=== PATIENT | male | born 1995 | race Caucasian/White ===

== ENCOUNTER 2019-08-06 14:47 | Emergency (ER) | payer MEDICAID ==
[~2019-08-06] VITALS: Ht 172.7 cm; Wt 108.9 kg
[2019-08-06 14:47] VITALS: BP_SYST 135
--- NOTE | 2019-08-06 14:48 | NUR ---
BROUGHT BACK TO BED #7 AND TRIAGED. REPORT GIVEN TO VERNON
--- NOTE | 2019-08-06 14:50 | NUR ---
Patient to ER bed 07 to gown for evaluation. Side rails up.
--- NOTE | 2019-08-06 14:52 | NUR ---
Pt AAOx4 ambulated into ED c/o cyst to tailbone x 5 days. Pt was prescribed doxycline x 2 days ago, but presents to ED c/o unrelieved pain to site. Skin erythema, edematous. 10/10 pain. no other injuries/complaints per pt/noted. Will continue to monitor.
--- NOTE | 2019-08-06 15:07 | NUR ---
ER Dr. Moralez at bedside examining patient.
[2019-08-06] MEDS ORDERED: KETOROLAC TROMETHAMINE 60 MG/2 ML VIAL IM ONE (15:30)
[2019-08-06] MEDS ORDERED: CLINDAMYCIN HCL 150 MG CAPSULE PO ONE (15:30)
[2019-08-06] MEDS ORDERED: MORPHINE 4 MG/ML INJ. SYRINGE IM ONE (15:30)
[2019-08-06] MEDS ORDERED: ONDANSETRON 4 MG ODT TAB PO ONE (15:30)
--- NOTE | 2019-08-06 16:23 | NUR ---
Patient given written and verbal discharge instructions and verbalizes understanding. ER MD discussed with patient the results and treatment provided. Patient in stable condition. ID arm band removed. Rx of Motrin, Clindamycin, Maskell 5mg given. Patient educated on pain management and to follow up with PMD. Pain Scale 3. Pt able to ambulate on his own. Opportunity for questions provided and answered. Medication side effect fact sheet provided.
[2019-08-06 16:28] VITALS: BP_SYST 129
== END 2019-08-06 16:23 | disposition home or self-care (01) ==
LOC: SED 14:47
DX: L05.01 Pilonidal cyst with abscess (principal); Z88.0 Allergy status to penicillin
CPT/HCPCS: 96372; 99283; J1885; J2270; Q0162

== ENCOUNTER 2020-12-27 15:17 | Emergency (ER) | payer MEDICAID ==
[~2020-12-27] VITALS: Ht 172.7 cm; Wt 113.4 kg
[2020-12-27 15:17] VITALS: BP_SYST 129
--- NOTE | 2020-12-27 15:17 | NUR ---
BROUGHT BACK TO BED #4 AND TRIAGED. REPORT GIVEN TO ZACHERY
--- NOTE | 2020-12-27 15:20 | NUR ---
Pt with c/o no stool x4 days. No abd distention noted. Pain became worse this morning and current pain level 5/10. Symptoms have not improved therefore he presented to the ER. VSS, no distress noted.
--- NOTE | 2020-12-27 15:40 | NUR ---
ER Dr. Sheehan at bedside examining patient.
--- NOTE | 2020-12-27 16:03 | NUR ---
urine sent to lab
[2020-12-27 16:12] LABS: BILIRUBIN,URINE NEGATIVE (NEGATIVE); BLOOD, URINE NEGATIVE (NEGATIVE); CLARITY/URINE CLEAR (CLEAR); COLOR,URINE YELLOW (YELLOW); GLUCOSE,URINE NEGATIVE (NEGATIVE); KETONES,URINE NEGATIVE (NEGATIVE); LEUKOCYTE ESTERASE ,URINE NEGATIVE (NEGATIVE); NITRITE, URINE NEGATIVE (NEGATIVE); PH,URINE 6.5 (5.0-8.0); PROTEIN URINE NEGATIVE (NEGATIVE); UROBILINOGEN,URINE 0.2 (0.2-1.0)
[2020-12-27 16:15] LABS: BASOPHILS % (AUTO) 0.5 % (0.0-2.0); EOSINOPHILS # (AUTO) 0.5 K/uL (0.0-0.4); EOSINOPHILS % (AUTO) 5.4 % (0.0-4.0); HEMATOCRIT 43.1 % (36-54); HEMOGLOBIN 14.2 g/dL (14.0-18.0); LYMPHOCYTES % (AUTO) 23.6 % (20.5-51.5); MEAN CORPUSCULAR HEMOGLOBIN 26 pg (27-31); MEAN CORPUSCULAR HGB CONC 33 % (32-36); MEAN CORPUSCULAR VOLUME 78 fL (79.0-98.0); MONOCYTES # (AUTO) 0.9 K/uL (0.0-1.0); MONOCYTES % (AUTO) 10.8 % (1.7-9.3); NEUTROPHILS % (AUTO) 59.7 % (40.0-70.0); PLATELET COUNT (AUTO) 337 K/uL (130-430); RED BLOOD CELL COUNT(AUTO) 5.53 MIL/uL (4.2-6.2); RED CELL DISTRIBUTION WIDTH 13.5 % (9.0-15.0); WHITE BLOOD COUNT (AUTO) 8.4 K/uL (4.8-10.8)
[2020-12-27] MEDS ORDERED: MAGN296S30 PO (16:24)
[2020-12-27 17:22] LABS: CALCIUM 9.3 mg/dL (8.4-11.0); CREATININE 0.95 mg/dL (0.55-1.30); POTASSIUM 4.1 mmol/L (3.5-5.1)
[2020-12-27 17:28] LABS: ALBUMIN 3.4 g/dL (3.4-4.8); TOTAL BILIRUBIN 0.2 mg/dL (0.0-1.0)
--- NOTE | 2020-12-27 18:02 | NUR ---
# 20 gauge angiocath placed to RAC. Use of asceptic technique. Opsite placed over site. Blood return noted. Blood for lab drawn from site. Flushed with 10 cc of normal saline. No evidence of infiltration noted. Patient tolerated well.
[2020-12-27 18:11] LABS: CHOLESTEROL 136 mg/dL (<200); HDL CHOLESTEROL 42 mg/dL (>45); LDL CHOLESTEROL 91 mg/dL (<100); TRIGLYCERIDES 93 mg/dL (30-150)
--- NOTE | 2020-12-27 18:43 | NUR ---
Ultrasound at bedside.
--- NOTE | 2020-12-27 19:15 | NUR ---
Received report from outgoing RN. Pt resting comfortably in bed, respirations even and unlabored, NAD.
--- NOTE | 2020-12-27 20:10 | NUR ---
Pt resting comfortably in bed, states his abdominal pain has resolved and he would like to go home. ERMD notified.
--- NOTE | 2020-12-27 20:12 | NUR ---
Dr. Sheehan at bedside explaining risks and benefits of leaving AMA.
[2020-12-27 20:23] VITALS: BP_SYST 124
--- NOTE | 2020-12-27 20:23 | NUR ---
Patient given written and verbal discharge instructions and verbalizes understanding. ER MD discussed with patient the results and treatment provided. Patient in stable condition. ID arm band removed. IV catheter removed intact and dressing applied, no active bleeding. Rx of Mag Citrate given. Patient educated on pain management and to follow up with PMD. Pain Scale 0/10 Opportunity for questions provided and answered. Medication side effect fact sheet provided.
--- NOTE | 2020-12-27 20:23 | NUR ---
Patient does not wish to proceed with medical care recommended by Dr. Sheehan. Patient given information related to possible complications, up to and including , which could occur as a result of leaving hospital at this time. Patient verbalizes understanding of risks involved leaving against medical advice. Patient has signed AMA form.
== END 2020-12-27 20:23 | disposition left against medical advice (07) ==
LOC: SED 15:17
DX: K85.20 Alcohol induced acute pancreatitis without necrosis or infection (principal); F17.210 Nicotine dependence, cigarettes, uncomplicated; F15.90 Other stimulant use, unspecified, uncomplicated; Z88.0 Allergy status to penicillin
CPT/HCPCS: 36415; 76700-TC; 80053; 80061; 81003; 83690-TC; 85025; 93005; 99285

== ENCOUNTER 2021-11-27 21:16 | Emergency (ER) | payer MEDICAID ==
[~2021-11-27] VITALS: Ht 175.3 cm; Wt 113.4 kg
[~2021-11-27 21:16] MED LIST: MAGN296S30 PO
--- NOTE | 2021-11-27 21:32 | NUR ---
Note trell in [facility] - 11/27/21 at 2140 by [email or web address] Patient to [facility] to stas for evaluation. Side rails up.
--- NOTE | 2021-11-27 21:32 | NUR ---
Patient to ER bed 2 to gown for evaluation. Side rails up. Report given to Ivy ESPAÑA(reg).
[2021-11-27 21:33] VITALS: BP_SYST 125
[2021-11-27] MEDS ORDERED: ONDANSETRON HCL 4 MG/2 ML VIAL IVP ONE (22:15)
[2021-11-27] MEDS ORDERED: NACL 0.9% 1,000 ML IV ONE (22:15)
--- NOTE | 2021-11-27 22:15 | NUR ---
DR. SUGGS AT BEDSIDE FOR MSE
--- NOTE | 2021-11-27 22:28 | NUR ---
# 20 gauge angiocath placed to RAC. Use of asceptic technique. Opsite placed over site. Blood return noted. Flushed with 10 cc of normal saline. No evidence of infiltration noted. Patient tolerated well.
[2021-11-27 22:43] LABS: BASOPHILS % (AUTO) 0.2 % (0.0-2.0); EOSINOPHILS # (AUTO) 0.1 K/uL (0.0-0.4); EOSINOPHILS % (AUTO) 1.2 % (0.0-4.0); HEMATOCRIT 48.1 % (36-54); HEMOGLOBIN 16.2 g/dL (14.0-18.0); LYMPHOCYTES # (AUTO) 1.4 K/uL (1.0-5.5); LYMPHOCYTES % (AUTO) 12.9 % (20.5-51.5); MEAN CORPUSCULAR HEMOGLOBIN 26 pg (27-31); MEAN CORPUSCULAR HGB CONC 34 % (32-36); MEAN CORPUSCULAR VOLUME 77 fL (79.0-98.0); MONOCYTES # (AUTO) 1.2 K/uL (0.0-1.0); NEUTROPHILS # (AUTO) 8.2 K/uL (1.8-7.7); NEUTROPHILS % (AUTO) 74.7 % (40.0-70.0); PLATELET COUNT (AUTO) 342 K/uL (130-430); RED BLOOD CELL COUNT(AUTO) 6.23 MIL/uL (4.2-6.2); RED CELL DISTRIBUTION WIDTH 13.5 % (9.0-15.0); WHITE BLOOD COUNT (AUTO) 10.9 K/uL (4.8-10.8)
[2021-11-27] MEDS ORDERED: ONDA-8 TL (22:51)
[2021-11-27 23:10] LABS: CALCIUM 9.2 mg/dL (8.4-11.0); CREATININE 1.08 mg/dL (0.55-1.30); POTASSIUM 4.2 mmol/L (3.5-5.1)
[2021-11-27 23:16] LABS: ALBUMIN 3.8 g/dL (3.4-4.8); TOTAL BILIRUBIN 0.3 mg/dL (0.0-1.0)
[2021-11-27 23:30] VITALS: BP_SYST 125
--- NOTE | 2021-11-27 23:30 | NUR ---
Patient given written and verbal discharge instructions and verbalizes understanding. ER MD discussed with patient the results and treatment provided. Patient in stable condition. ID arm band removed. IV catheter removed intact and dressing applied, no active bleeding. Rx of ZOFRAN given. Patient educated on pain management and to follow up with PMD. Pain Scale 0. Opportunity for questions provided and answered. Medication side effect fact sheet provided.
== END 2021-11-27 23:30 | disposition home or self-care (01) ==
LOC: SED 21:16
DX: R11.2 Nausea with vomiting, unspecified (principal); R19.7 Diarrhea, unspecified; Z88.0 Allergy status to penicillin; Z79.899 Other long term (current) drug therapy; Z20.822 Contact with and (suspected) exposure to COVID-19
CPT/HCPCS: 36415; 80053; 83690; 85025; 87426; 96361; 96374; 99283; J2405; J7030

== ENCOUNTER 2021-12-25 20:48 | Emergency (ER) | payer MEDICAID ==
[~2021-12-25] VITALS: Ht 175.3 cm; Wt 113.4 kg
[~2021-12-25 20:48] MED LIST changes: -MAGN296S30 PO; +MAGN296S8 PO; +ONDA-8 TL
[2021-12-25 20:51] VITALS: BP_SYST 131
[2021-12-25] MEDS ORDERED: DEXAMETHASONE SOD PHOSPHATE 10 MG/ML VIAL IM ONE (21:45)
[2021-12-25] MEDS ORDERED: CLIN-142 PO (22:00)
[2021-12-25 22:27] VITALS: BP_SYST 131
[2021-12-25] MEDS ORDERED: CLINDAMYCIN HCL 150 MG CAPSULE PO ONE (22:30)
== END 2021-12-25 22:27 | disposition home or self-care (01) ==
LOC: SED 20:48
DX: L08.9 Local infection of the skin and subcutaneous tissue, unspecified (principal); Z88.0 Allergy status to penicillin
CPT/HCPCS: 96372; 99283; J1100

== ENCOUNTER 2021-12-30 18:48 | Emergency (ER) | payer MEDICAID ==
[~2021-12-30] VITALS: Ht 175.3 cm; Wt 113.4 kg
[~2021-12-30 18:48] MED LIST changes: +CLIN-142 PO
[2021-12-30 19:13] VITALS: BP_SYST 125
[2021-12-30] MEDS ORDERED: ONDANSETRON 4 MG ODT TAB PO ONE (19:30)
[2021-12-30] MEDS ORDERED: FAMOTIDINE 20 MG TABLET PO ONE (19:30)
--- NOTE | 2021-12-30 19:42 | NUR ---
Patient wheeled to bed 2 from Lab room. [employer] was drawing blood when patient became dizzy and pale.
[2021-12-30 19:50] LABS: BASOPHILS % (AUTO) 0.1 % (0.0-2.0); EOSINOPHILS # (AUTO) 0.3 K/uL (0.0-0.4); HEMATOCRIT 53.2 % (36-54); HEMOGLOBIN 17.8 g/dL (14.0-18.0); LYMPHOCYTES # (AUTO) 3.2 K/uL (1.0-5.5); LYMPHOCYTES % (AUTO) 23.5 % (20.5-51.5); MEAN CORPUSCULAR HEMOGLOBIN 26 pg (27-31); MEAN CORPUSCULAR HGB CONC 33 % (32-36); MEAN CORPUSCULAR VOLUME 78 fL (79.0-98.0); MONOCYTES % (AUTO) 7.7 % (1.7-9.3); NEUTROPHILS % (AUTO) 66.7 % (40.0-70.0); PLATELET COUNT (AUTO) 406 K/uL (130-430); RED BLOOD CELL COUNT(AUTO) 6.83 MIL/uL (4.2-6.2); RED CELL DISTRIBUTION WIDTH 14.5 % (9.0-15.0); WHITE BLOOD COUNT (AUTO) 13.5 K/uL (4.8-10.8)
--- NOTE | 2021-12-30 19:50 | NUR ---
AT THE BEDSIDE
--- NOTE | 2021-12-30 20:02 | NUR ---
26 YR OLD AOX4, AMBULATORY WITH COMPLAINT OF VOMITING, ABDOMINAL PAIN WITH HEART BURN FOR ONE DAY. PT DENIES ANY HEALTH HISTORY. PT REPORTS FEELING WEAK SINCE HE HAS BEEN VOMITING. PT ON FISHER. PT HAS MOM AT THE BEDSIDE. WILL MONITOR NEEDED
[2021-12-30 20:15] LABS: CALCIUM 9.7 mg/dL (8.4-11.0); CREATININE 0.97 mg/dL (0.55-1.30); POTASSIUM 3.6 mmol/L (3.5-5.1)
[2021-12-30 20:22] LABS: ALBUMIN 4.4 g/dL (3.4-4.8); TOTAL BILIRUBIN 0.3 mg/dL (0.0-1.0)
[2021-12-30] MEDS ORDERED: PANTOPRAZOLE SODIUM 40 MG/VIAL (PROTONIX) IVP ONE (21:00)
[2021-12-30] MEDS ORDERED: NACL 0.9% 1,000 ML IV ONE (21:00)
[2021-12-30] MEDS ORDERED: ONDANSETRON HCL 4 MG/2 ML VIAL IVP ONE (21:00)
[2021-12-30] MEDS ORDERED: PRO40 PO (21:26)
[2021-12-30] MEDS ORDERED: BISM-69 PO (21:26)
[2021-12-30] MEDS ORDERED: ONDA-8 TL (21:27)
[2021-12-30 22:00] VITALS: BP_SYST 137
--- NOTE | 2021-12-30 22:56 | NUR ---
PT NOTIFIED OF DISCHARGE BY , RN PROVIDED PT WITH PRESCRIPTION AND [facility] INSTRUCTIONS. PT GIVEN EDUCATION REGARDING [facility], IV REMOVED FROM LEFT AC. PT TOLERATED WELL. CLEAN GAUZE APPLIED TO SITE WITH PAPER TAPE. PT ENCOURAGED TO FOLLOW UP WITH PRIMARY DOCTOR WITHIN 3 TO 5 DAYS. PT VERBALIZED UNDERSTANDING. PT DISCHARGED WITH ALL BELONGINGS, IN STABLE CONDITION, WITH STRONG STEADY GAIT. ACCOMPANIED BY MOTHER.
== END 2021-12-30 23:03 | disposition home or self-care (01) ==
LOC: SED 18:48
DX: A08.4 Viral intestinal infection, unspecified (principal); I10 Essential (primary) hypertension; Z88.0 Allergy status to penicillin; Z79.899 Other long term (current) drug therapy
CPT/HCPCS: 36415; 80053; 83690; 85025; 96361; 96374; 99283; C9113; J2405; J7030; Q0162

== ENCOUNTER 2023-02-24 13:56 | Emergency (ER) | payer MEDICAID ==
[~2023-02-24] VITALS: Ht 175.3 cm; Wt 113.4 kg
[~2023-02-24 13:56] MED LIST changes: +BISM-69 PO; +PRO40 PO
[2023-02-24 14:00] VITALS: BP_SYST 127
[2023-02-24] MEDS ORDERED: NACL 0.9% 2,000 ML IV ONE (15:45)
[2023-02-24] MEDS ORDERED: ONDANSETRON HCL 4 MG/2 ML VIAL IVP ONE (15:45)
[2023-02-24 16:16] LABS: BASOPHILS % (AUTO) 0.3 % (0.0-2.0); EOSINOPHILS # (AUTO) 0.2 K/uL (0.0-0.4); EOSINOPHILS % (AUTO) 1.7 % (0.0-4.0); HEMATOCRIT 47.8 % (36-54); HEMOGLOBIN 15.8 g/dL (14.0-18.0); LYMPHOCYTES # (AUTO) 1.8 K/uL (1.0-5.5); LYMPHOCYTES % (AUTO) 14.9 % (20.5-51.5); MEAN CORPUSCULAR HEMOGLOBIN 26 pg (27-31); MEAN CORPUSCULAR HGB CONC 33 % (32-36); MEAN CORPUSCULAR VOLUME 79 fL (79.0-98.0); MONOCYTES # (AUTO) 1.4 K/uL (0.0-1.0); MONOCYTES % (AUTO) 11.7 % (1.7-9.3); NEUTROPHILS # (AUTO) 8.7 K/uL (1.8-7.7); NEUTROPHILS % (AUTO) 71.4 % (40.0-70.0); PLATELET COUNT (AUTO) 281 K/uL (130-430); RED BLOOD CELL COUNT(AUTO) 6.02 MIL/uL (4.2-6.2); RED CELL DISTRIBUTION WIDTH 13.9 % (9.0-15.0); WHITE BLOOD COUNT (AUTO) 12.2 K/uL (4.8-10.8)
[2023-02-24 16:41] LABS: ALBUMIN 3.6 g/dL (3.4-4.8); CALCIUM 8.9 mg/dL (8.4-11.0); CREATININE 1.06 mg/dL (0.55-1.30); TOTAL BILIRUBIN 0.4 mg/dL (0.0-1.0)
[2023-02-24] MEDS ORDERED: LOPE2CAP PO (17:37)
[2023-02-24] MEDS ORDERED: ONDA-8 TL (17:37)
[2023-02-24 17:50] VITALS: BP_SYST 127
== END 2023-02-24 17:53 | disposition home or self-care (01) ==
LOC: SED 13:56
DX: R19.7 Diarrhea, unspecified (principal); R11.2 Nausea with vomiting, unspecified; R10.13 Epigastric pain; F12.90 Cannabis use, unspecified, uncomplicated; Z88.0 Allergy status to penicillin; Z79.899 Other long term (current) drug therapy
CPT/HCPCS: 99283; 96374; 96361; 80053; 83690; 85025; 36415; J2405; J7030